=== PATIENT | male | born 1965 | race Caucasian/White ===

== ENCOUNTER → 2016-11-26 | Outpatient (CLI) | payer BC ==
[~2016-11-26] MED LIST: GLUC100018 PO; HYDR-2762 PO; IBUP-1060 PO; MULT1TAB52 PO; TIZA4TAB8 PO
[2016-11-26 15:22] LABS: BASO # 0.1 x10^3/uL (0.0-0.2); BASO % 2 % (0-3); EOS % 12 % (0-3); HEMATOCRIT 40.5 % (39.0-53.0); HEMOGLOBIN 13.5 g/dL (13.0-17.5); LYMPH # 1.2 x10^3/uL (1.0-4.8); LYMPH % 24 % (24-48); MEAN CORPUSCULAR HEMOGLOBIN 32 pg (25-35); MEAN CORPUSCULAR HGB CONC 34 g/dL (31-37); MEAN CORPUSCULAR VOLUME 95 fL (79-100); MONO % 8 % (0-9); NEUT % 54 % (31-73); PLATELET COUNT 167 x10^3/uL (140-400); RED BLOOD COUNT 4.28 x10^6/uL (4.30-5.70); RED CELL DISTRIBUTION WIDTH 13.1 % (11.5-14.5)
[2016-11-26 15:48] LABS: ALBUMIN 4.1 g/dL (3.4-5.0); ALBUMIN/GLOBULIN RATIO 1.4 (1.0-1.7); CALCIUM 9.2 mg/dL (8.5-10.1); GFR 79.1; POTASSIUM 4.3 mmol/L (3.5-5.1); TOTAL BILIRUBIN 0.6 mg/dL (0.2-1.0)
== END | disposition home or self-care (01) ==
LOC: SURGPAT 14:30
PROVIDERS: ATTEND Neurological Surgery
DX: M48.02 Spinal stenosis, cervical region (principal); M50.10 Cervical disc disorder with radiculopathy, unspecified cervical region; M43.22 Fusion of spine, cervical region
CPT/HCPCS: 36415; 80053; 85027; 87641

== ENCOUNTER 2016-12-05 06:49 | Observation (INO) | payer BC ==
[~2016-12-05] VITALS: Ht 182.9 cm; Wt 94.3 kg
[2016-12-05] VITALS (10 sets, daily range): BP systolic 122–138; BP diastolic 69–81
[~2016-12-05 06:49] MED LIST changes: +BACITRACIN 50,000 UNIT in IV NORMAL SALINE 1000ML BAG 1,000 ML IRR ONE; +BUPIVAC MPF-EPI 0.5%-1:200000 30 ML VIAL. ONE; +GELATIN SPONGE SIZE 100. ONE; +THROMBIN 20,000 UNIT SPRAY.SYRN KIT TP ONE
[2016-12-05] MEDS ORDERED: IV RINGERS,LACTATED 1000ML 1,000 ML IV SCH (07:16)
[2016-12-05] MEDS ORDERED: ONDANSETRON PF 4 MG/2 ML VIAL. IV PRN ×2 (07:30→13:00)
[2016-12-05] MEDS ORDERED: PROCHLORPERAZINE 10 MG/2 ML VIAL. IV PRN (07:30)
[2016-12-05] MEDS ORDERED: LIDOCAINE 1% 1 ML SYRINGE. ID PRN (07:30)
[2016-12-05] MEDS ORDERED: FENTANYL PF 100 MCG/2 ML VIAL. IV PRN ×2 (07:30→13:00)
[2016-12-05] MEDS ORDERED: PROPOFOL 50 ML IV ONE (07:56)
[2016-12-05] MEDS ORDERED: LIDOCAINE 2% 100 MG/5 ML DISP.SYRIN. ONE (07:56)
[2016-12-05] MEDS ORDERED: DESFLURANE > 120 MINUTES IH ONE ×2 (07:56→12:36)
[2016-12-05] MEDS ORDERED: DEXAMETHASONE SOD PHOS 20 MG/5 ML VIAL. ONE (07:56)
[2016-12-05] MEDS ORDERED: PROPOFOL 20 ML IV ONE ×2 (07:56→12:00)
[2016-12-05] MEDS ORDERED: 0.9 % SODIUM CHLORIDE 50 ML VIAL. IJ ONE (07:56)
[2016-12-05] MEDS ORDERED: MINERAL OIL/PETROLATUM,WHITE OPHTH OINT 3.5GM TUBE. ONE (07:56)
[2016-12-05] MEDS ORDERED: ONDANSETRON PF 4 MG/2 ML VIAL. ONE (07:56)
[2016-12-05] MEDS ORDERED: MIDAZOLAM HCL 2 MG/2 ML VIAL. ONE (07:57)
[2016-12-05] MEDS ORDERED: ROCURONIUM 50 MG/5 ML VIAL. ONE (07:57)
[2016-12-05] MEDS ORDERED: REMIFENTANIL 2 MG VIAL. IV ONE (07:57)
[2016-12-05] MEDS ORDERED: FENTANYL PF 100 MCG/2 ML VIAL. ONE (07:57)
[2016-12-05] MEDS: CEFAZOLIN 2GM PREMIX 50 ML IV PRN ×2 (09:20→15:04)
[2016-12-05] MEDS ORDERED: PHENYLEPHRINE in 0.9% NACL PF 1 MG/10 ML DISP.SYRIN. IV ONE (09:37)
[2016-12-05] MEDS ORDERED: GLYCOPYRROLATE 1 MG/5 ML VIAL. ONE (09:45)
[2016-12-05] MEDS ORDERED: NEOSTIGMINE METHYLSULFATE 5 MG/5 ML SYRINGE. ONE (12:30)
[2016-12-05] MEDS ORDERED: POTASSIUM CL 20MEQ D5-0.45NACL 1,000 ML IV SCH (12:49)
[2016-12-05] MEDS: FENTANYL PF 100 MCG/2 ML VIAL. IV PRN ×7 (12:53→21:19)
[2016-12-05] MEDS: MORPHINE SULFATE 2 MG/ML DISP.SYRIN. IV PRN ×2 (13:00→13:10)
[2016-12-05] MEDS ORDERED: ZOLPIDEM 5 MG TABLET. PO PRN (13:00)
[2016-12-05] MEDS ORDERED: HYDROCODONE/APAP 7.5/325MG TABLET. PO PRN ×2 (13:00)
[2016-12-05] MEDS ORDERED: MAGNESIUM HYDROXIDE 2,400 MG/30 ML ORAL.SUSP. PO PRN (13:00)
[2016-12-05] MEDS ORDERED: DIPHENHYDRAMINE 50 MG/ML VIAL IV PRN (13:00)
[2016-12-05] MEDS ORDERED: CALCIUM CARBONATE 500 MG TAB.CHEW PO PRN (13:00)
[2016-12-05] MEDS ORDERED: 0.9 % SODIUM CHLORIDE 10 ML DISP.SYRIN. IV PRN (13:00)
[2016-12-05] MEDS ORDERED: ACETAMINOPHEN 325 MG TABLET. PO PRN (13:00)
[2016-12-05] MEDS ORDERED: DIPHENHYDRAMINE HCL 25 MG CAPSULE PO PRN (13:00)
[2016-12-05] MEDS ORDERED: MAG HYDROX/ALUMINUM HYD/SIMETH 30 ML ORAL.SUSP PO PRN (13:00)
--- NOTE | 2016-12-05 13:20 | OP ---
DATE OF SURGERY: 12/05/2016 PREOPERATIVE DIAGNOSES: Cervical herniated nucleus pulposus and lateral recess stenosis with cervical radiculopathy, C4-C5. POSTOPERATIVE DIAGNOSES: Cervical herniated nucleus pulposus and lateral recess stenosis with cervical radiculopathy, C4-C5. OPERATIONS PERFORMED: Anterior cervical microdiskectomy C4-C5 and C5-C6, anterior cervical interbody fusion C4-C5 and C5-C6 with interbody fusion cage packed with allograft and autograft bone, anterior cervical plate C4, C5, and C6. Operation was done with EMG monitoring, SSEP monitoring, Nims monitoring, motor evoked potentials, fluoroscopy, microscopic dissection. ADVICE LINE RN: Vadim Tapia MD, assisted with the surgery, assisted with the exposure, microdiskectomies at both levels as well as closure. OPERATIVE INDICATIONS: The patient is a very pleasant 51-year-old man who developed severe intractable neck and right arm pain along with weakness and numbness in the right upper extremity. On imaging studies, he had posterior disk bulging/herniation at both levels along with significant lateral recess and foraminal narrowing and I recommended a 2-level anterior cervical diskectomy and fusion at he failed conservative measures. He understood the surgery. He understood the risks. I spoke about injury to the soft tissue structures of the neck and sequelae of injury to each. I spoke with him about the expected postoperative course. He understood and wished to go ahead. DESCRIPTION OF PROCEDURE: Following general endotracheal anesthesia, the patient was positioned supine on the operating room table. The anterior cervical region was prepped and draped in standard fashion. MARIA D hose and AV impulse boots were applied for DVT prophylaxis. A microscope was draped. Fluoroscopy was draped and brought into field. Monitoring was established. Ancef 2 grams was given less than 1 hour prior to initiation of surgery. Using fluoroscopic guidance, incision was made from the midline around to the right side over skin crease. I dissected down through skin and subcutaneous tissue, I sharply divided the platysma and then dissected in the medial aspect of the sternocleidomastoid and carotid artery sheath down the anterior cervical vertebral body. I gently reflected the trachea and esophagus contralaterally and placed [place] anterior cervical retractors wedged in the longus colli muscles. I brought in the microscope during this time and the remainder of surgery done with the microscope using microscopic technique. I incised the anterior annulus with 11 blade and I performed a diskectomy with pituitary rongeurs, began at C5-C6, there was considerable degenerative change and degeneration of the disk material, I gently worked down through this and then drilled away the posterior spurring which was significant and then used 1 and 2 mm micro Kerrisons to pass down through the annulus where I removed a significant subligamentous bulging disk and then worked widely into each foramen to ensure that they were opened and completely decompressed. I did open the posterior longitudinal ligament during this time and followed this out laterally bilaterally and I was easily able to pass a blunt hook out along the course of the exiting root. I scraped cartilaginous endplate, I worked diligently and obtained perfect hemostasis and then I measured and placed a 6 mm standard anterior cage, which was packed with allograft and autograft bone. This was gently tapped into position. I then removed the pin from C6 and removed the retractors at C5-C4 5, placed a pin into C4 and I performed the identical operation at C4-C5, there was more anterior osteophytic spurring and I trimmed this material away. Using the high speed air drill as well as the micro Kerrisons, I then performed a generous diskectomy with pituitary rongeurs and then I trimmed the posterior annulus and ligament and opened widely bilaterally. I scraped the cartilaginous endplate. At this level, there was again posterior disk bulging/herniation, which I removed, this level was not quite as degenerated as the C5-C6, but there was still significant foraminal narrowing. the foramina were open, the interbody fusion cages at this level 1 placed a 6 mm lordotic cage, which was packed with allograft and autograft bone after I obtained perfect hemostasis in the disk space. This was gently tapped into position. I then measured and placed a 42 mm anterior plate and placed superior and inferior screws first and the remaining screws. At the superior level, I was satisfied with my purchase in the C4 vertebral body and I switched to slightly larger diameter screws and then had excellent fixation throughout. I irrigated copiously with antibiotic solution. I removed the retractors. I the patient. I explored carefully and assured myself of perfect hemostasis. I then closed the wound in layers with absorbable suture. Skin was closed with 4-0 subcuticular stitch, the surgery went very, very well and the patient was awakened uneventfully. I was quite pleased with the surgery. JENNIFER ENG MD DR: ASH/ana cristina JOB#: [id number] / [id number]
[2016-12-05] MEDS: HYDROMORPHONE 2 MG/ML VIAL. IV PRN ×2 (13:40→13:51)
[2016-12-05] MEDS: tiZANidine 4 MG TABLET. PO PRN ×2 (14:37→21:18)
[2016-12-05] MEDS: CEFAZOLIN SODIUM 1 GM in IV NORMAL SALINE 50ML 50 ML IV SCH (16:11)
[2016-12-05] MEDS ORDERED: GABAPENTIN 300 MG CAPSULE. PO SCH (21:00)
[2016-12-05] MEDS: GABAPENTIN 300 MG CAPSULE. PO SCH (21:18)
[2016-12-05] MEDS: DOCUSATE SODIUM 100 MG CAPSULE PO SCH (21:18)
[2016-12-05] MEDS: HYDROCODONE/APAP 7.5/325MG TABLET. PO PRN (22:41)
[2016-12-05] MEDS: BENZOCAINE/MENTHOL LOZENGE. PO PRN (22:41)
--- NOTE | 2016-12-06 00:20 | ACF ---
Admission Forms Criteria MUSCULOSKELETAL DISEASE GRG Clinical Indications for Admission to Inpatient Care (Place 'X' for any and all applicable criteria): Hospital admission is needed for appropriate care of the patient because of ANY ONE of the following: [ ]I. Fracture, dislocation, or other musculoskeletal injury requiring inpatient care(medical) as indicated by ANY ONE of the following(4)(5)(6)(7) [ ]a) Vertebral fracture requiring observation for instability or neurologic compromise (8) [ ]b) Compartment syndrome (proven or cannot be ruled out during observation level of care) (9) [ ]c) Limb-threatening injury [ ]d) Major injury requiring inpatient stabilization such as traction initiation or external fixation before internal fixation or closure of complex or open fracture [ ]e) Major injury requiring inpatient treatment after emergency or observation level care (as appropriate) [ ]f) Severe pain requiring acute inpatient management [ ]II. Newly diagnosed or suspected bone, joint, or orthopedic device infection (e.g., osteomyelitis, septic arthritis) needing ANY ONE of the following(1)(2)(3) [ ]a) IV antibiotics that cannot be initiated in other than inpatient setting (e.g., patient too unstable or home infusion not available) [ ]b) Device removal or replacement [ ]c) Bone or soft tissue debridement [ ]d) Joint drainage (drain placement or repetitive aspirations) [ ]III. Severe rheumatologic disease (e.g., systemic lupus erythematosus, rheumatoid arthritis) with complications or comorbidities (Also use Optimal Recovery Care Criteria or General Recovery Criteria as appropriate on the basis of predominant condition), including ANY ONE of the following(10 )(11)(12)(13) [ ]a) Severe infection (e.g., [employer] infection, sepsis) (14) [ ]b) Respiratory complications, including ANY ONE of the following: [ ]i) Pleural effusion with respiratory compromise [ ]ii) Pulmonary hypertension with congestive failure [ ]iii) Respiratory failure [ ]iv) Pulmonary hemorrhage (15) [ ]c) Hematologic disease, including ANY ONE of the following: [ ]i) Coagulopathy with bleeding [ ]ii) Thrombosis with hypercoagulable state [ ]iii) Thrombotic thrombocytopenic purpura [ ]d) Cerebritis with seizures, psychosis, or other severe abnormalities [ ]e) Vertebral destruction with monitoring needed for cervical myelopathy& possible respiratory compromise [ ]f) Exacerbation that requires inpatient treatment (e.g., intravenous immunosuppression) (16) [ ]g) Acute renal failure [ ]IV. Severe vasculitis with complications or comorbidities (Also use Optimal Recovery Care Criteria or General Recovery Criteria as appropriate on the basis of predominant condition), including ANY ONE of the following(11)(12)(17)(18)(19)(20) [ ]a) [employer] vasculitis with seizures, psychosis, or other severe abnormalities (22) [ ]b) Renal failure (16) [ ]c) Pulmonary hemorrhage (15) [ ]d) Cerebral infarction [ ]e) Gastrointestinal ischemia [ ]f) Gangrene or threatened amputation [ ]g) Exacerbation that requires inpatient treatment (e.g., intravenous immunosuppression) (19)(21) [ ]V. Severe myopathy as indicated by ANY ONE of the following (28)(29) [ ]a) New onset of airway compromise or inability to swallow [ ]b) Respiratory deterioration with observation needed for impending respiratory failure [ ]c) Exacerbation that requires inpatient treatment (e.g., intravenous immunosuppression) [ ]. Severe gout (crystal arthropathy) as indicated by ANY ONE of the following (23)(24) [ ]a) Severe pain requiring acute inpatient management [ ]b) Exacerbation that requires inpatient treatment (e.g., intravenous treatment) [ ]VII.Rhabdomyolysis and ANY ONE of the following (25)(26)(27) [ ]a) Acute renal failure [ ]b) Need for intravenous hydration after emergency or observation level care (as appropriate) [ ]c) Inability to maintain oral hydration [ ]d) Change in mental status [ ]e) Electrolyte abnormality that remains after emergency or observation level care (as appropriate) [ ]VIII Post amputation complication, as indicated by ANY ONE of the following [ ]a) Infection [ ]b) Dehiscence [ ]c) Myodesis failure [X]IX. Severe pain requiring acute inpatient management as indicated by ALL of the following (30)(31)(32) [X]a) Continuous or frequent (e.g., every 2 to 4 hrs) parenteral analgesics required [A] [X]b) Rapid improvement expected from treatment or acute intervention ( e.g., surgery, anesthesia procedure[B] [ ]X. Musculoskeletal Disease and ALL of the following: [ ]a) Symptom or finding for which emergency and observation care have failed or are not considered appropriate (Use General Criteria: Observation Care as appropriate) [ ]b) Presence of ANY ONE of the following [ ]i) A General Admission Criteria [ ]ii) A Pediatric General Admission Criteria The original [facility] content created by [facility] has been revised. The portions of the content which have been revised are identified through the use of italic text or in bold, and [facility] has neither reviewed nor approved the modified material. All other unmodified content is copyright [facility]. Please see references footnoted in the original [facility] edition 2016 Admission Criteria Met?: Yes CUCA AREVALO Dec 06, 2016 00:20
[2016-12-06] MEDS: CEFAZOLIN SODIUM 1 GM in IV NORMAL SALINE 50ML 50 ML IV SCH ×2 (01:11→08:19)
[2016-12-06] MEDS: FENTANYL PF 100 MCG/2 ML VIAL. IV PRN (01:17)
[2016-12-06] MEDS: BENZOCAINE/MENTHOL LOZENGE. PO PRN (01:18)
[2016-12-06 03:45] VITALS: BP 138/75
[2016-12-06] MEDS: HYDROCODONE/APAP 7.5/325MG TABLET. PO PRN ×2 (04:53→08:15)
[2016-12-06 05:56] VITALS: BP 124/66
[2016-12-06] MEDS: tiZANidine 4 MG TABLET. PO PRN (08:15)
[2016-12-06] MEDS: DOCUSATE SODIUM 100 MG CAPSULE PO SCH (08:15)
[2016-12-06] MEDS: GABAPENTIN 300 MG CAPSULE. PO SCH (08:15)
[2016-12-06] MEDS ORDERED: MULTIVITAMIN with MINERAL TABLET. PO SCH (09:00)
[2016-12-06] MEDS ORDERED: NON FORMULARY ITEM (Glucosamine Sulfate 2KCL (Glucosamine) 1,000 MG) PO SCH (09:00)
--- NOTE | 2016-12-06 10:26 | DISCH ---
DISCHARGE INSTRUCTIONS Condition on Discharge Condition on Discharge: Stable Activity After Discharge Activity Instructions for Disc: Activity as tolerated, Avoid exertion Other activity instructions: no driving for a week Bathing Instructions: Shower-keep dressing dry Lifting Instructions after Dis: No heavy lifting, No pulling or pushing, Do not lift >10 pounds Diet after Discharge Additional Diet Restrictions: resume home diet Wound Incision Care Wound/Incision Care: Ice to area for comfort Other wound/incision instructi: may remove dressing tomorrow if dry then may shower- no soaking Contacting the after DC Call your doctor for: Concerns you may have Follow-Up Follow up with: Dr. Madrigal in 2 weeks [phone] LIZETTE WALLIS APRN Dec 06, 2016 10:26
[2016-12-06] MEDS ORDERED: GABA-586 PO (10:27)
[2016-12-06] MEDS ORDERED: DOCU-27 PO (10:27)
--- NOTE | 2016-12-06 10:58 | PDOC ---
PROGRESS NOTES Subjective Subjective POD #1 Right arm feel better, numbness tingling resolved, feels stronger still has some intermittent mild pain in right deltoid c/o sore throat, ate breakfast Objective Objective Vital Signs Date Time Temp Pulse Resp B/P Pulse Ox O2 Delivery O2 Flow Rate FiO2 12/06/16 08:15 16 12/06/16 08:00 Room Air 12/06/16 06:00 96 12/06/16 05:56 98.0 58 124/66 98.0 12/05/16 18:04 2.0 Intake and Output 12/06/16 07:00 Intake Total 995 ml Output Total 3175 ml Balance -2180 ml Intake Oral 995 ml Output Urine Total 3175 ml # Voids 1 Physical Exam General: Alert, Oriented X3, Cooperative, No acute distress, Other (voice clear ) Neuro: Normal speech, Other (NYE) Psych/Mental Status: Mental status NL Skin: Other (dressing dry and intact) Assessment Assessment Problems Medical Problems: (1) Cervical radiculopathy Status: Acute Plan Plan of Care dc home f/u 2 weeks Comment Review of Relevant I have reviewed the following items brittany (where applicable) has been applied. Medications Current Medications Bacitracin 62152 unit/Sodium Chloride 1,000 ml @ 1,000 mls/hr 1X PERIOP ONCE IRR Last administered on 12/05/16 09:49; Start 12/05/16 at 06:00; Stop at 06:59; Status DC Cefazolin Sodium/ Dextrose (Ancef 2gm Premix) 50 ml @ 100 mls/hr 1X PREOP PRN IV PRIOR TO PROCEDURE Last administered on 12/05/16 09:20; Start 12/05/16 at 06 :00; Stop 12/05/16 at 18:00; Status DC Thrombin 20,000 unit STK-MED ONCE TP Last administered on 12/05/16 09:49; Start 12/05/16 at 06:44; Stop 12/05/16 at 06:45; Status DC Gelatin (Gelfoam Size 100) 1 each STK-MED ONCE .ROUTE Last administered on 09:49; Start 12/05/16 at 06:44; Stop 12/05/16 at 06:45; Status DC Bupivacaine HCl/ Epinephrine Bitart (Sensorcain-Mpf Epi 0.5%-1:727388) 30 ml STK -MED ONCE .ROUTE Last administered on 12/05/16 09:49; Start 12/05/16 at 06:44 ; Stop 12/05/16 at 06:45; Status DC Ondansetron HCl (Zofran) 4 mg PRN Q6HRS PRN IV Nausea; Start 12/05/16 at 07:30 ; Stop 12/05/16 at 18:00; Status DC Fentanyl Citrate (Fentanyl 2ml Vial) 25 mcg PRN Q5MIN PRN IV MILD PAIN; Start 12/05/16 at 07:30; Stop 12/05/16 at 18:00; Status DC Fentanyl Citrate (Fentanyl 2ml Vial) 50 mcg PRN Q5MIN PRN IV MODERATE PAIN Last administered on 12/05/16 13:14; Start 12/05/16 at 07:30; Stop 12/05/16 at 18:00; Status DC Morphine Sulfate 1 mg 1 mg PRN Q10MIN PRN IV SEVERE PAIN Last administered on 13:10; Start 12/05/16 at 07:30; Stop 12/05/16 at 18:00; Status DC Lactated Ringer's (Iv Lactated Ringers) 1,000 ml @ 30 mls/hr Q24H IV Last administered on 12/05/16 07:39; Start 12/05/16 at 07:16; Stop 12/05/16 at 19:15 ; Status DC Lidocaine HCl 2 ml 1X PRN PRN ID IV START; Start 12/05/16 at 07:30; Stop at 18:00; Status DC Hydromorphone HCl (Dilaudid) 0.5 mg PRN Q10MIN PRN IV SEV PAIN,Second choice Last administered on 12/05/16 13:51; Start 12/05/16 at 07:30; Stop 12/05/16 at 18:00; Status DC Prochlorperazine Edisylate (Compazine) 5 mg PACU PRN PRN IV NAUSEA; Start 12/05 at 07:30; Stop 12/05/16 at 18:00; Status DC Dexamethasone Sodium Phosphate (Decadron) 20 mg STK-MED ONCE .ROUTE ; Start at 07:56; Stop 12/05/16 at 07:57; Status DC Ondansetron HCl 4 mg 4 mg STK-MED ONCE .ROUTE ; Start 12/05/16 at 07:56; Stop at 07:57; Status DC Propofol 50 ml @ As Directed STK-MED ONCE IV ; Start 12/05/16 at 07:56; Stop at 07:57; Status DC Propofol (Diprivan) 20 ml @ As Directed STK-MED ONCE IV ; Start 12/05/16 at 07: 56; Stop 12/05/16 at 07:57; Status DC Lidocaine HCl 100 mg STK-MED ONCE .ROUTE ; Start 12/05/16 at 07:56; Stop at 07:57; Status DC Multi-Ingred Cream/Lotion/Oil/ Oint (Artificial Tears Eye Oint) 7 hardy STK-MED ONCE .ROUTE ; Start 12/05/16 at 07:56; Stop 12/05/16 at 07:57; Status DC Sodium Chloride (Sodium Chloride) 50 ml STK-MED ONCE IJ ; Start 12/05/16 at 07: 56; Stop 12/05/16 at 07:57; Status DC Desflurane (Suprane) 90 ml STK-MED ONCE IH ; Start 12/05/16 at 07:56; Stop 12/05 at 07:57; Status DC Midazolam HCl (Versed) 2 mg STK-MED ONCE .ROUTE ; Start 12/05/16 at 07:57; Stop 12/05/16 at 07:58; Status DC Remifentanil HCl (Ultiva) 2 mg STK-MED ONCE IV ; Start 12/05/16 at 07:57; Stop 12/05/16 at 07:58; Status DC Fentanyl Citrate (Fentanyl 2ml Vial) 100 mcg STK-MED ONCE .ROUTE ; Start at 07:57; Stop 12/05/16 at 07:58; Status DC Rocuronium [place] (Zemuron) 50 mg STK-MED ONCE .ROUTE ; Start 12/05/16 at 07:57 ; Stop 12/05/16 at 07:58; Status DC Phenylephrine HCl 1 mg STK-MED ONCE IV ; Start 12/05/16 at 09:37; Stop 12/05/16 at 09:38; Status DC Glycopyrrolate 1 mg 1 mg STK-MED ONCE .ROUTE ; Start 12/05/16 at 09:45; Stop at 09:46; Status DC Propofol (Diprivan) 20 ml @ As Directed STK-MED ONCE IV ; Start 12/05/16 at 12: 00; Stop 12/05/16 at 12:01; Status DC Neostigmine Methylsulfate 5 mg STK-MED ONCE .ROUTE ; Start 12/05/16 at 12:30; Stop 12/05/16 at 12:31; Status DC Desflurane (Suprane) 90 ml STK-MED ONCE IH ; Start 12/05/16 at 12:36; Stop 12/05 at 12:37; Status DC Acetaminophen/ Hydrocodone Bitart (Lortab 7.5/325) 1 tab PRN Q6HRS PRN PO PAIN ; Start 12/05/16 at 13:00 Tizanidine HCl (Zanaflex) 4 mg PRN QID PRN PO MUSCLE SPASMS Last administered on 12/06/16 08:15; Start 12/05/16 at 13:00 Non-Formulary Medication 1,000 mg DAILY PO ; Start 12/06/16 at 09:00; Stop 12/06 at 09:00; Status DC Multivitamins (Thera M Plus) 1 tab DAILY PO Last administered on 12/06/16 08: 15; Start 12/06/16 at 09:00 Acetaminophen (Tylenol) 650 mg PRN Q6HRS PRN PO MILD PAIN / TEMP; Start at 13:00 Al Hydroxide/Mg Hydroxide (Mylanta Plus Xs) 30 ml PRN Q3HRS PRN PO HEARTBURN / GAS; Start 12/05/16 at 13:00 Calcium Carbonate/ Glycine (Tums) 500 mg PRN Q3HRS PRN PO INDIGESTION; Start at 13:00 Diphenhydramine HCl (Benadryl) 25 mg PRN Q6HRS PRN PO ITCHING; Start 12/05/16 at 13:00 Diphenhydramine HCl (Benadryl) 25 mg PRN Q6HRS PRN IV ITCHING; Start 12/05/16 at 13:00 Zolpidem Tartrate (Ambien) 5 mg PRN QHS PRN PO INSOMNIA, MAY REPEAT IN 1HR; Start 12/05/16 at 13:00 Sodium Chloride 3 ml 3 ml QSHIFT PRN IV AFTER MEDS AND BLOOD DRAWS; Start 12/05 at 13:00 Potassium Chloride/Dextrose/ Sod Cl (KCl 20 Meq In D5W-1/2 NS) 1,000 ml @ 75 mls/hr [id number] IV Last administered on 12/05/16 14:37; Start 12/05/16 at 12:49 Docusate Sodium (Colace) 100 mg BID PO Last administered on 12/06/16 08:15; Start 12/05/16 at 21:00 Magnesium Hydroxide (Milk Of Magnesia) 2,400 mg PRN Q12HR PRN PO CONSTIPATION; Start 12/05/16 at 13:00 Ondansetron HCl 4 mg 4 mg PRN Q6HRS PRN IV NAUESA, 1ST CHOICE; Start 12/05/16 at 13:00 Cefazolin Sodium/ Sodium Chloride (Ancef/Iv Sodium Chloride 0.9% 50ml) 50 ml @ 100 mls/hr Q8H IV Last administered on 12/06/16 08:19; Start 12/05/16 at 17:00 ; Stop 12/06/16 at 09:29; Status DC Acetaminophen/ Hydrocodone Bitart (Lortab 7.5/325) 2 tab PRN Q6HRS PRN PO PAIN Last administered on 12/06/16 08:15; Start 12/05/16 at 13:00 Acetaminophen/ Hydrocodone Bitart (Lortab 7.5/325) 1 tab PRN Q6HRS PRN PO PAIN ; Start 12/05/16 at 13:00 Fentanyl Citrate (Fentanyl 2ml Vial) 25 mcg PRN Q1HR PRN IV PAIN; Start at 13:00 Fentanyl Citrate (Fentanyl 2ml Vial) 50 mcg PRN Q1HR PRN IV PAIN Last administered on 12/06/16 01:17; Start 12/05/16 at 13:00 Gabapentin (Neurontin) 300 mg QID PO ; Start 12/05/16 at 21:00; Stop 12/05/16 at 21:00; Status DC Throat Lozenges (Cepacol Sore Throat Lozenge) 1 bay PRN Q2HRS PRN PO SORE THROAT Last administered on 12/06/16 01:18; Start 12/05/16 at 19:45 Gabapentin (Neurontin) 600 mg QID PO Last administered on 12/06/16 08:15; Start 12/05/16 at 21:00 Active Scripts Active Gabapentin 300 Mg Capsule 600 Mg PO QID 60 Days Colace (Docusate Sodium) 100 Mg Capsule 100 Mg PO BID 60 Days Reported Glucosamine (Glucosamine Sulfate 2KCL) 1,000 Mg Tablet 1,000 Mg PO DAILY not given in the hospital may resumewhen available Multivitamins (Multivitamin) 1 Each Tablet 1 Each PO DAILY last dose was this am next dose tomorrow am Zanaflex (Tizanidine Hcl) 4 Mg Tablet 4 Mg PO QID PRN last dose was 0815 may have the next dose at 1300 Hydrocodone-Apap 7.5-325 (Hydrocodone Bit/Acetaminophen) 1 Each Tablet 1 Tab PO PRN Q6HRS PRN last dose at 0815 may take 1 to 2 pills every 6 hrs as needed Vitals/I & O Vital Sign - Last 24 Hours 12/05/16 12/05/16 12/05/16 12/05/16 12:38 12:53 12:53 13:00 Temp 99.7 99.7 Pulse 89 94 Resp 16 B/P 140/75 151/76 Pulse Ox 98 95 95 O2 Delivery Simple Mask Nasal Cannula Nasal Cannula Nasal Cannula O2 Flow Rate 10 2 12/05/16 12/05/16 12/05/16 12/05/16 13:08 13:10 13:14 13:23 Pulse 81 88 Resp 16 16 B/P 145/68 145/67 Pulse Ox 96 97 O2 Delivery Nasal Cannula Nasal Cannula Nasal Cannula Nasal Cannula O2 Flow Rate 2 2.0 2 12/05/16 12/05/16 12/05/16 12/05/16 13:38 13:40 13:51 14:00 Temp 99.2 97.4 99.2 97.4 Pulse 98 100 Resp 16 18 16 18 B/P 145/67 128/77 Pulse Ox 97 97 O2 Delivery Nasal Cannula Nasal Cannula Nasal Cannula Room Air 12/05/16 12/05/16 12/05/16 12/05/16 14:15 14:30 14:48 15:00 Temp 98.3 98.3 Pulse 94 Resp 18 B/P 129/81 130/79 122/71 Pulse Ox 98 O2 Delivery Nasal Cannula Room Air 12/05/16 12/05/16 12/05/16 12/05/16 15:30 16:00 16:14 17:00 Temp 97.1 97.3 97.1 97.3 Pulse 88 80 74 Resp 20 18 B/P 129/76 127/73 138/69 Pulse Ox 97 97 97 O2 Delivery Room Air Nasal Cannula Room Air O2 Flow Rate 2.0 12/05/16 12/05/16 12/05/16 12/05/16 17:50 18:00 18:04 19:34 Temp 98.0 98.0 Pulse 76 Resp 18 20 B/P 129/80 Pulse Ox 97 96 93 O2 Delivery Room Air Room Air Nasal Cannula Room Air O2 Flow Rate 2.0 12/05/16 12/05/16 12/05/16 12/05/16 19:45 21:00 21:19 22:00 Temp 98.1 98.1 Pulse 73 Resp 20 20 B/P 132/77 Pulse Ox 95 94 94 O2 Delivery Nasal Cannula Room Air Room Air 12/05/16 12/05/16 12/06/16 12/06/16 22:41 22:50 01:17 02:00 Temp 97.8 97.8 Pulse 62 Resp 20 20 20 20 B/P 134/75 Pulse Ox 95 95 94 O2 Delivery Room Air Room Air Room Air Room Air 12/06/16 12/06/16 12/06/16 12/06/16 03:45 04:53 05:56 06:00 Temp 98.0 98.0 98.0 98.0 Pulse 63 58 Resp 20 20 18 20 B/P 138/75 124/66 Pulse Ox 96 96 96 96 O2 Delivery Room Air Room Air Room Air Room Air 12/06/16 12/06/16 08:00 08:15 Resp 16 O2 Delivery Room Air Intake and Output 12/05/16 12/05/16 12/06/16 15:00 23:00 07:00 Intake Total 35 ml 460 ml 500 ml Output Total 3175 ml Balance 35 ml 460 ml -2675 ml LIZETTE WALLIS APRN Dec 06, 2016 10:58
--- NOTE | 2016-12-06 15:10 | PATHOLOGY ---
PATHOLOGY REPORT * * * * * * * * FINAL DIAGNOSIS: Segments of fibrocartilaginous tissue and bone, "cervical disc": - Degenerative changes of fibrocartilaginous tissue. COMMENT: There is no evidence of an acute inflammatory process or malignancy. (JPM:; d/t: 12/06/16) REPORT ELECTRONICALLY SIGNED BY: Sukhjinder Amaro M.D. DATE/TIME: 12/06/2016 15:08 * * * * * * * * GROSS PATHOLOGY: Received in formalin labeled "Derick Rios and cervical disc," are multiple segments of red-mar to white-mar, rubbery and gritty tissue admixed with possible bone measuring 3.2 x 3.2 x 0.5 cm in aggregate dimensions. The tissue is submitted representatively in cassette A1, following decalcification. (TTL; 12/05/2016) INITIAL CPT CODE(S): A; 62700, 57140 Professional services performed [place] [facility] [place] [address] Technical services performed by [facility] at [address] [place] [address]. SPECIMEN(S) RECEIVED: A.Cervical disc CLINICAL HISTORY: Herniated disc, cervical stenosis, radiculopathy C5-6 PATIENT: DERICK RIOS /AGE: 211/11/1965 (Age: 51) PATIENT #: [id number] ALT CASE #: SPECIMEN COLLECTION DATE: 12/05/2016 SPECIMEN RECEIVED DATE: 12/05/2016 [facility] - [address] [place] [address] - PHONE: [phone] * * * END OF REPORT * * *
--- NOTE | 2016-12-09 10:30 | PREOP HP ---
DATE OF SERVICE: 12/05/2016 DATE OF SURGERY: 12/05/2106 HISTORY OF PRESENT ILLNESS: The patient is a pleasant 51-year-old man who is having difficulty with neck and right arm pain. He has been working out at the gym aggressively. Over the last several months ago, he noticed development of neck discomfort. Beginning 1-2 months ago, his pain increased and he found that if he looked up or turned his head in a certain position, he would develop very significant pain which would radiate into his right arm. He noted muscle spasms in his arm. He found twitching on his right forearm. He saw chiropractor and received traction and the TENS unit, which he say helped him. Extremely severe neck pain improves to a point and then he develops very sharp severe pain with certain quick movements or working out. He is taking ibuprofen, Neurontin as well as Tylenol to control his pain. If he stops his Neurontin, the pain becomes extremely severe. He takes oral steroids which are of no benefit. There is no significant problem on the left side. He has not noticed difficulties with his balance or coordination. PAST MEDICAL HISTORY: ____ tonsillitis. PAST SURGICAL HISTORY: Left ankle with screws in 2010, right foot surgery in 2009. FAMILY HISTORY: Cancer, diabetes, heart problems, [place] at an early age. 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 . Exercises daily. Denies substance abuse. Drinks alcohol one to two times per week. Drinks caffeine daily. ALLERGIES: No known drug allergies. CURRENT MEDICATIONS: Robaxin, gabapentin, [place], Tylenol, ibuprofen, multivitamin, glucosamine. REVIEW OF SYSTEMS: A 12-point review of systems was obtained and is noncontributory except for that mentioned above. NEUROSURGERY EXAMINATION: GENERAL APPEARANCE: Alert, pleasant, in no acute distress. HEAD: Normocephalic and atraumatic. NECK AND THYROID: [id number] tenderness with palpation of posterior cervical region. SKIN: Warm and dry. MUSCULOSKELETAL: Cervical paraspinal muscle bulk is normal, cervical range of motion is restricted, normal range of motion of the upper extremities bilaterally. EXTREMITIES: No clubbing, cyanosis, or edema. NEUROLOGIC: Alert and oriented x 3, normal recent and remote memory, strength 5/5 in bilateral upper and lower extremities except for 4+/5 right deltoid strength and 4+/5 right biceps strength, sensory was intact to light touch in the upper and lower extremities, reflexes were trace and symmetric in the upper and lower extremities bilaterally except for an absent right biceps reflex, normal gait. IMAGING DATA: Reviewed. I reviewed his cervical MRI scan. On that study, at C4-C5, there is posterior disk bulging with moderately severe bilateral neural foraminal narrowing. At C5-C6, there is marked posterior disk bulging with bilateral recess narrowing and marked bilateral neural foraminal narrowing, worse in the right side. ASSESSMENT: 1. Cervical disk disorder at C4-C5 level with radiculopathy. 2. Cervical disk disorder at C5-C6 level with radiculopathy. PLAN: I believe the problem is at C5-C6 and to a lesser extent at C4-C5. I believe these levels are responsible for his symptoms. He has failed to improve with conservative measures. The pain is severe. I recommended a 2-level anterior cervical microdiskectomy and fusion. Surgery will be done at C4-C5 and C5-C6. I spoke with him about surgery and the risks associated with the anterior neck surgery and sequelae of injury to the soft tissue structures of the neck. I spoke about the expected postoperative course. He would like to go ahead. We will make the arrangement. JENNIFER ENG MD DR: ASH/ana cristina JOB#: [id number] / [id number]
== END 2016-12-06 11:15 | disposition home or self-care (01) ==
LOC: SURG 06:49 → 4 SOUTHEST 13:00
PROVIDERS: ADMIT Neurological Surgery; ATTEND Neurological Surgery
DX: M50.121 Cervical disc disorder at C4-C5 level with radiculopathy (principal); M48.02 Spinal stenosis, cervical region
CPT/HCPCS: 20930; 20936; 22551; 22552; 22853; 76000; 88304; 88311; 96365; 96366; 96375; 96376; 97161; 97530; C1713; G0378; G0379; G8978; G8979; G8980; J0690; J1100; J1170; J2250; J2270; J2370; J2405; J2704; J2710; J3010; J3490; J7030; J7120; J0780

== ENCOUNTER → 2017-01-22 | Outpatient (CLI) | payer BC ==
[~2017-01-22] MED LIST changes: -BACITRACIN 50,000 UNIT in IV NORMAL SALINE 1000ML BAG 1,000 ML IRR ONE; -BUPIVAC MPF-EPI 0.5%-1:200000 30 ML VIAL. ONE; +DOCU-27 PO; +GABA-586 PO; -GELATIN SPONGE SIZE 100. ONE; -THROMBIN 20,000 UNIT SPRAY.SYRN KIT TP ONE
--- NOTE | 2017-01-22 14:59 | RAD ---
Indication: Neck pain and recent fall. Time of exam 1443 hours. AP and lateral views of the cervical spine were obtained. Curvature and alignment is normal. There are postop changes of ACDF with anterior plate and screws extending from C4 through C6. The hardware does appear to be intact. Note is made that the anterior plate is from the anterior cortex of the C4 vertebral body by approximately 4 mm. C5-C6 levels are unremarkable. The prevertebral tissues are normal. No fractures are seen. Impression: C4-C6 ACDF, as described. No acute abnormality is seen.
== END | disposition home or self-care (01) ==
LOC: RAD 14:23
PROVIDERS: ATTEND Neurological Surgery
DX: M43.22 Fusion of spine, cervical region (principal); Z91.81 History of falling
CPT/HCPCS: 72040

== ENCOUNTER → 2017-01-24 | Outpatient (CLI) | payer BC ==
[~2017-01-24] MED LIST changes: +BARIUM SULFATE 40% (APPLE) 148 GM PWD. PO ONE; +GADOBUTROL 10 MMOL/10 ML VIAL IV ONE
--- NOTE | 2017-01-24 12:31 | RAD ---
PROCEDURE MRI cervical spine without and with contrast. HISTORY Bilateral arm radiculopathy for 4 days after fall, previous cervical fusion TECHNIQUE Multiplanar, multi sequential pre and post contrast MR imaging was performed of the cervical spine. Contrast: 9 cc Gadavist COMPARISON None FINDINGS There is motion degradation even for repeated images. Cervical vertebral body stature and AP alignment are adequate. There has been anterior cervical fusion at C4, C5, C6. Interbody fusion at these levels is not apparent at this time. Exam does not accurately evaluate integrity of hardware. Cervical cord caliber is within normal limits without obvious or expansile signal abnormality, limited evaluation for subtle signal change due to motion. There is no enhancement of the cervical cord. There is no significant abnormality of the cervical medullary junction. There is an approximate 1.9 cm transverse lipoma of the left posterior subcutaneous fat at the C2 level. There is mild mucosal thickening of the visualized left maxillary sinus at the floor. C2-3: Spinal canal and neural foramina are adequate. C3-4: There is minimal disc osteophyte complex. Central canal is borderline 10 millimeters. There is uncovertebral degenerative change bilaterally. There is likely mild to moderate neural foramina compromise bilaterally although poorly characterized due to motion. C4-C5: There are minimal posterior osteophytes. Central canal is likely narrowed to approximately 9 millimeters. Neural foramina are poorly evaluated due to motion. There is likely at least moderate narrowing of the neural foramina bilaterally by osteophytes. C5-6: There are posterior osteophytes. Central canal is likely narrowed to approximately 9 millimeters also with mild narrowing of the lateral recesses. There is uncovertebral degenerative change. There is suspected moderate to severe neural foramina compromise bilaterally. C6-7: Spinal canal is adequate. Right neural foramen is adequate, possible very mild narrowing of the left neural foramen by osteophytes. C7-T1: Spinal canal and neural foramina are adequate. IMPRESSION 1. There has been anterior cervical fusion C4, C5, C6. 2. There is mild spinal stenosis C4-5 and C5-C6. 3. Accurate evaluation of the neural foramina is limited due to motion, suspected neural foramina compromise as stated primarily from uncovertebral degenerative change greatest bilaterally at C5-C6, to a lesser degree at C4-5 and C3-C4. Electronically signed by: Sony Schrader MD (January 24, 2017 12:30:26)
--- NOTE | 2017-01-24 14:24 | RAD ---
Exam performed: Video dysphasia exam. Clinical Indication: History of recent anterior cervical fusion, difficulty with swallowing solids Date of Exam: 01/24/2017 3:30 PM .Comparison: None available Discussion: The study was performed in conjunction with the speech pathologist. Barium of varying consistencies including thin, pudding and solid barium were administered to the patient and swallowing was recorded on video and reviewed. There is normal anteroposterior transfer of the bolus. Normal pharyngeal contractions is seen. There is poor epiglottic inversion. There is vallecular and piriform sinus residue with all ingested boluses mainly solid consistency. Patient had to cough and regurgitation the residual solid consistency. There was improved swallowing and decreased residue of the pudding consistency with a subsequent thin consistency bolus. There is laryngeal penetration with thin consistency barium ingested after solid. The total fluoroscopy time of 1.9 minutes was utilized. Impression: 1. [Ventricular and pyriform sinus residue which improves on subsequent swallowing. For a complete evaluation, please refer to the speech pathologists report
== END | disposition home or self-care (01) ==
LOC: MRI 10:36
PROVIDERS: ATTEND Neurological Surgery
DX: M43.22 Fusion of spine, cervical region (principal); R13.10 Dysphagia, unspecified
CPT/HCPCS: 72156; 74230; A9585

== ENCOUNTER → 2017-02-28 | Outpatient (CLI) | payer BC ==
[~2017-02-28] MED LIST changes: -BARIUM SULFATE 40% (APPLE) 148 GM PWD. PO ONE; +DOCU-109 PO; -DOCU-27 PO; -GADOBUTROL 10 MMOL/10 ML VIAL IV ONE
--- NOTE | 2017-02-28 09:12 | RAD ---
Cervical spine, 2 views, 02/28/2017: History: Follow-up cervical spine fusion Comparison is made to a study from 01/22/2017. Again noted is an anterior cervical fixation plate attached to the C4, C5 and C6 vertebral bodies via 2 screws at each level. There is slight separation of the posterior aspect of this plate from the anterior cortex of C4, unchanged since the previous exam. Disc spacers remain in place at the C4-5 and C5-6 disc levels. The vertebral alignment is anatomic. There are mild scattered marginal spurs. No new abnormality is detected. IMPRESSION: Stable anterior cervical spinal fusion as described above.
== END | disposition home or self-care (01) ==
LOC: RAD 07:40
PROVIDERS: ATTEND Neurological Surgery
DX: M43.22 Fusion of spine, cervical region (principal); Z98.1 Arthrodesis status
CPT/HCPCS: 72040

== ENCOUNTER 2018-04-14 17:27 | Inpatient (IN) | payer BC ==
[2018-04-14] MEDS ORDERED: CONTRAST GIVEN. MC (18:15)
[2018-04-14] MEDS: IOHEXOL 300 MG/ML 100ML VIAL. IV (18:15)
[2018-04-14 18:20] LABS: ADD MAN DIFF? NO
[2018-04-14 18:24] LABS: BASO % 1 % (0-3); EOS # 0.3 x10^3/uL (0.0-0.7); EOS % 4 % (0-3); HEMOGLOBIN 14.4 g/dL (13.0-17.5); LYMPH # 1.1 x10^3/uL (1.0-4.8); LYMPH % 17 % (24-48); MEAN CORPUSCULAR HEMOGLOBIN 32 pg (25-35); MEAN CORPUSCULAR HGB CONC 34 g/dL (31-37); MEAN CORPUSCULAR VOLUME 93 fL (79-100); MONO # 0.5 x10^3/uL (0.0-1.1); MONO % 8 % (0-9); NEUT # 4.4 x10^3uL (1.8-7.7); NEUT % 70 % (31-73); PLATELET COUNT 138 x10^3/uL (140-400); RED CELL DISTRIBUTION WIDTH 12.8 % (11.5-14.5); WHITE BLOOD COUNT 6.2 x10^3/uL (4.0-11.0)
[2018-04-14 18:32] LABS: ANION GAP 6 (6-14); BLOOD UREA NITROGEN 20 mg/dL (8-26); CALCIUM 8.9 mg/dL (8.5-10.1); CARBON DIOXIDE 33 mmol/L (21-32); CHLORIDE 104 mmol/L (98-107); CREATININE 1.1 mg/dL (0.7-1.3); GFR 70.6; GLUCOSE 119 mg/dL (70-99); POTASSIUM 3.6 mmol/L (3.5-5.1); SODIUM 143 mmol/L (136-145)
[2018-04-14] MEDS: MORPHINE SULFATE 4 MG/ML DISP.SYRIN. IV ×2 (19:21→21:40)
[2018-04-14] MEDS: GADOBUTROL 10 MMOL/10 ML VIAL IV (21:04)
[2018-04-14] MEDS ORDERED: ONDANSETRON PF 4 MG/2 ML VIAL. IV (22:30)
[2018-04-14] MEDS: IV NORMAL SALINE 1000ML BAG 1,000 ML IV (23:55)
[2018-04-15] MEDS: MORPHINE SULFATE 4 MG/ML DISP.SYRIN. IV ×7 (00:14→14:42)
[2018-04-15] MEDS: tiZANidine 4 MG TABLET. PO (11:59)
== END 2018-04-15 15:30 | disposition home or self-care (01) | DRG 914 ==
LOC: 4 SOUTHEST 04-15 07:34 → ER 17:27 → 4 NORTH 22:25
DX: S19.89XA Other specified injuries of other specified part of neck, initial encounter (principal); Y93.89 Activity, other specified; Y92.89 Other specified places as the place of occurrence of the external cause; Z83.3 Family history of diabetes mellitus; Z98.1 Arthrodesis status; M47.9 Spondylosis, unspecified; W16.42XA Fall into unspecified water causing other injury, initial encounter
CPT/HCPCS: 36415; 70496; 70498; 72040; 72146; 72148; 72156; 80048; 85025; 96374; 96375; 99285-25; A9585; J2060; J2270; J7030; Q9967

== ENCOUNTER → 2018-04-18 | Outpatient (CLI) | payer BC | END | disposition home or self-care (01) | LOC: RAD 15:25 | DX: S12.500D Unspecified displaced fracture of sixth cervical vertebra, subsequent encounter for fracture with routine healing (principal); X58.XXXD Exposure to other specified factors, subsequent encounter | CPT/HCPCS: 72040 ==

== ENCOUNTER 2018-04-23 18:25 | Emergency (ER) | payer BC ==
[2018-04-23 19:41] LABS: ADD MAN DIFF? NO
[2018-04-23 19:43] LABS: BASO # 0.1 x10^3/uL (0.0-0.2); BASO % 1 % (0-3); EOS # 0.1 x10^3/uL (0.0-0.7); EOS % 1 % (0-3); HEMATOCRIT 46.3 % (39.0-53.0); HEMOGLOBIN 15.8 g/dL (13.0-17.5); LYMPH # 1.1 x10^3/uL (1.0-4.8); LYMPH % 17 % (24-48); MEAN CORPUSCULAR HEMOGLOBIN 32 pg (25-35); MEAN CORPUSCULAR HGB CONC 34 g/dL (31-37); MEAN CORPUSCULAR VOLUME 94 fL (79-100); MONO # 0.5 x10^3/uL (0.0-1.1); MONO % 8 % (0-9); NEUT # 4.6 x10^3uL (1.8-7.7); NEUT % 73 % (31-73); PLATELET COUNT 200 x10^3/uL (140-400); RED BLOOD COUNT 4.95 x10^6/uL (4.30-5.70); RED CELL DISTRIBUTION WIDTH 12.8 % (11.5-14.5); WHITE BLOOD COUNT 6.3 x10^3/uL (4.0-11.0)
[2018-04-23 19:52] LABS: PROTHROMBIN TIME PATIENT 12.6 SEC (11.7-14.0)
[2018-04-23 19:55] LABS: ANION GAP 7 (6-14); BLOOD UREA NITROGEN 17 mg/dL (8-26); BUN/CREATININE RATIO 17 (6-20); CALCIUM 9.5 mg/dL (8.5-10.1); CARBON DIOXIDE 30 mmol/L (21-32); CHLORIDE 104 mmol/L (98-107); GFR 78.8; GLUCOSE 126 mg/dL (70-99); POTASSIUM 3.8 mmol/L (3.5-5.1); SODIUM 141 mmol/L (136-145)
[2018-04-23 20:02] LABS: ALBUMIN 3.8 g/dL (3.4-5.0); ALBUMIN/GLOBULIN RATIO 1.1 (1.0-1.7); ALK PHOS 67 U/L (46-116); ALT (SGPT) 52 U/L (16-63); AST (SGOT) 33 U/L (15-37); TOTAL BILIRUBIN 0.4 mg/dL (0.2-1.0); TOTAL PROTEIN 7.2 g/dL (6.4-8.2)
[2018-04-23] MEDS: GADOBUTROL 10 MMOL/10 ML VIAL IV (21:12)
[2018-04-23] MEDS: traMADol 50 MG TABLET PO (22:42)
== END 2018-04-23 22:47 | disposition home or self-care (01) ==
LOC: ER 22:47
DX: M54.12 Radiculopathy, cervical region (principal); R53.1 Weakness; R20.0 Anesthesia of skin; Z90.49 Acquired absence of other specified parts of digestive tract; Z98.890 Other specified postprocedural states
CPT/HCPCS: 36415; 72156; 80053; 85025; 85610; 96374; 99285-25; A9585

== ENCOUNTER → 2018-05-06 | Outpatient (CLI) | payer BC ==
[2018-04-23 18:45] VITALS: BP 143/79
[~2018-05-06] MED LIST changes: +GABA600T2 PO; +TRAM50TA PO
--- NOTE | 2018-05-06 16:34 | RAD ---
EXAM: Cervical spine, 2 views. HISTORY: Fracture follow-up. COMPARISON: 04/23/2018 and 04/14/2018. FINDINGS: Frontal and lateral views of the cervical spine are obtained. There is instrumented anterior spinal fusion and interbody fusion at C4-C6. There is mild anterolisthesis of C6 on C7. There is degenerative endplate remodeling at C3-C4 and C6-C7. The previously demonstrated left C6 facet and pedicle fractures are not well seen radiographically. There is slight subluxation at the C5-C6 facet joints without convincing perched facets. IMPRESSION: 1. Instrumented fusion at C4-C6. 2. Degenerative change primarily at C3-C4 and C6-C7. 3. Slight anterolisthesis of C6 on C7 and suspected slight subluxation along the facet joints at C5-C6. This is likely more conspicuous compared to the most recent studies due to differences in patient positioning. The recently demonstrated left facet and pedicle fractures at C6 are not well seen radiographically. This can be better assessed with a CT. Electronically signed by: Christy Sun MD (05/06/2018 4:32 PM) [place] [id number]
== END | disposition home or self-care (01) ==
LOC: RAD 14:40
PROVIDERS: ATTEND Neurological Surgery
DX: S12.500D Unspecified displaced fracture of sixth cervical vertebra, subsequent encounter for fracture with routine healing (principal); Z90.49 Acquired absence of other specified parts of digestive tract; Z83.3 Family history of diabetes mellitus; X58.XXXD Exposure to other specified factors, subsequent encounter
CPT/HCPCS: 72040

== ENCOUNTER → 2018-06-03 | Outpatient (CLI) | payer BC ==
[2018-04-23 18:45] VITALS: BP 143/79
--- NOTE | 2018-06-03 14:51 | RAD ---
EXAM: Cervical spine, 2 views. HISTORY: Fracture follow-up. COMPARISON: 05/06/2018 FINDINGS: Frontal and lateral views of the cervical spine are obtained. There is instrumented anterior spinal fusion and interbody fusion at C4-C6. There is degenerative endplate remodeling primarily at C3-C4 and C6-C7. There is facet arthropathy at all levels. There is unchanged slight subluxation of the facet joints at C5 5 to C6. The previously reported left facet and pedicle fractures at C6 are not well seen radiographically. IMPRESSION: 1. Instrumented fusion at C4-C6, unchanged compared to the prior study. 2. Stable degenerative change primarily at C3-C4 and C6-C7. 3. No significant change in subluxation of the facet joints at C5-C6. The previously reported left facet and pedicle fractures at C6 are not well seen radiographically. Electronically signed by: Christy Sun MD (06/03/2018 2:47 PM) [id number]
== END | disposition home or self-care (01) ==
LOC: RAD 14:01
PROVIDERS: ATTEND Neurological Surgery
DX: M43.5X2 Other recurrent vertebral dislocation, cervical region (principal); M12.88 Other specific arthropathies, not elsewhere classified, other specified site; Z83.3 Family history of diabetes mellitus; Z90.49 Acquired absence of other specified parts of digestive tract
CPT/HCPCS: 72040

== ENCOUNTER → 2018-07-01 | Outpatient (CLI) | payer BC ==
[2018-04-23 18:45] VITALS: BP 143/79
--- NOTE | 2018-07-01 14:54 | RAD ---
2 views of the cervical spine compared to similar study dated June 03, 2018 for status post cervical fusion, cervical fracture. FINDINGS: There is redemonstration of anterior cervical disc fusion of C4-C6, with intervertebral disc spacers at C4-5 and C5-6. Findings are unchanged from the prior examination. Alignment is maintained. Degenerative changes are seen involving the C6-7 intervertebral disc space, with narrowing and anterior osteophytes at this level. There is 2 to 3 mm of anterolisthesis at this level as well. No prevertebral soft tissue abnormalities are identified. Dystrophic calcification in the posterior soft tissues is unchanged. IMPRESSION: 1. Stable postsurgical changes of cervical fusion from C4 through C6 as described. Electronically signed by: Virgil Fraga MD (07/01/2018 2:51 PM) [id number]
== END | disposition home or self-care (01) ==
LOC: RAD 13:28
PROVIDERS: ATTEND Neurological Surgery
DX: Z47.89 Encounter for other orthopedic aftercare (principal); Z98.1 Arthrodesis status
CPT/HCPCS: 72040

== ENCOUNTER → 2019-02-26 | Outpatient (CLI) | payer BC ==
[2018-04-23 18:45] VITALS: BP 143/79
[~2019-02-26] MED LIST changes: -GABA-586 PO; +GABA300C18 PO; -GABA600T2 PO; +GABA600T7 PO; -HYDR-2762 PO; +HYDR-2765 PO
--- NOTE | 2019-02-26 16:32 | RAD ---
MRI of the cervical spine without contrast 02/26/2019 CLINICAL HISTORY: Neck pain which radiates down both arms, left greater than right. History of previous cervical fusion. TECHNIQUE: Unenhanced T1-weighted, T2-weighted and inversion recovery sagittal and gradient echo and T2-weighted axial images of the cervical spine were obtained. FINDINGS: There is straightening of the normal cervical lordosis. The patient is post anterior fusion using an anterior plate, bone screws and bone graft material at C4-5 and C5-6. Degenerative signal changes and loss of height are seen involving the remaining discs of the cervical spine. Degenerative signal changes are seen within the marrow surrounding these discs. No area of abnormal signal intensity is seen involving the cervical spinal cord. At the C2-3 disc space there is a minimal generalized disc bulge. Degenerative changes are seen involving the uncovertebral and facet joints bilaterally. These findings do not result in significant central spinal canal or neural foraminal stenosis. At the C3-4 disc space there is a moderate generalized disc bulge. Superimposed on this disc bulge is a right paracentral disc osteophyte complex. This measures 4 mm in AP diameter. Degenerative changes are seen involving the uncovertebral and facet joints bilaterally. These findings efface the anterior and posterior CSF resulting in mild right greater than left central spinal canal stenosis with minimal right-sided cord impingement. Mild to moderate bilateral neural foraminal stenosis is seen. At the C4-5 and C5-6 levels degenerative changes are seen involving the uncovertebral and facet joints bilaterally. These findings do not result in significant central spinal canal or neural foraminal stenosis. At the C6-7 disc space there is a mild generalized disc bulge. Degenerative changes are seen involving the uncovertebral and facet joints bilaterally. These findings do not result in significant central spinal canal or neural foraminal stenosis. At the C7-T1 disc space there is a minimal generalized disc bulge. Degenerative changes are seen involving the facet joints bilaterally. These findings do not result in significant central spinal canal or neural foraminal stenosis. The degenerative changes have not significantly changed since the previous study. IMPRESSION: 1. Post anterior fusion at C4-5 and C5-6. 2. Degenerative changes are seen throughout the cervical spine. These findings result in mild right greater than left central spinal canal stenosis with minimal right-sided cord impingement at C3-4. Mild to moderate bilateral neural foraminal stenosis is seen at C3-4. Electronically signed by: Paco Rosado MD (02/26/2019 4:29 PM) [id number]
--- NOTE | 2019-02-26 16:41 | RAD ---
Lumbar spine, lateral flexion and extension views, 02/26/2019: HISTORY: Lumbar radiculopathy A supine lateral view of the lumbar spine was obtained in addition to standing lateral views in flexion and extension, as requested. There is mild disc space narrowing throughout the lumbar spine with moderate scattered marginal spurs. There are degenerative changes involving the facet joints, particularly in the lower lumbar spine. No fracture or subluxation is evident on this limited exam. No instability is identified on the standing flexion and extension views. IMPRESSION: 1. Moderate multilevel degenerative change. 2. No subluxation or instability is identified on these lateral views. Electronically signed by: Richie Richardson MD (02/26/2019 4:38 PM) [facility]
--- NOTE | 2019-02-26 16:44 | RAD ---
Cervical spine, lateral flexion and extension views, 02/26/2019: HISTORY: Cervical spondylolisthesis Lateral views of the cervical spine were obtained in flexion and extension while standing as requested. The following findings are delineated on this limited exam: 1. There is been an anterior cervical fusion from C4 through C6 with an anterior fixation plate and multiple screws in place. 2. There is moderate disc space narrowing and marginal spurring at C3-4 and C6-7 3. There are moderate degenerative changes involving multiple facet joints bilaterally. 4. No significant spondylolisthesis or instability is identified. Electronically signed by: Richie Richardson MD (02/26/2019 4:42 PM) [facility]
== END | disposition home or self-care (01) ==
LOC: MRI 14:58
PROVIDERS: ATTEND Neurological Surgery
DX: M47.26 Other spondylosis with radiculopathy, lumbar region (principal); M47.812 Spondylosis without myelopathy or radiculopathy, cervical region; M48.061 Spinal stenosis, lumbar region without neurogenic claudication; M43.12 Spondylolisthesis, cervical region; M48.02 Spinal stenosis, cervical region; M25.78 Osteophyte, vertebrae; M43.22 Fusion of spine, cervical region
CPT/HCPCS: 72040; 72100; 72141